=== PATIENT | female | born 1950 | race Caucasian/White ===

== ENCOUNTER 2017-12-25 08:24 | Day surgery (SDC) | payer MEDICARE, OTHER ==
[~2017-12-25] VITALS: Ht 165.1 cm; Wt 99.1 kg
--- NOTE | ~2017-12-25 | OP ---
PATIENT NAME: KOBY PEREIRA MEDICAL RECORD: [id number] :54 LOCATION:D.OPS ADMISSION DATE: SURGEON: SERENA VALLECILLO DO DATE OF OPERATION: 12/25/2017 PROCEDURE: Colonoscopy with polypectomy and biopsies. 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 SCOPE: Olympus video pediatric colonoscope. MEDICATIONS: Propofol 500 mg IV per anesthesia. WITHDRAWAL TIME: 21 minutes. ESTIMATED BLOOD LOSS: Minimal. COMPLICATIONS: None. FINDINGS: Informed consent was given. The patient was made comfortable with the above medication. After reaching an adequate level of sedation by slow IV push, the patient was placed on her left side. A digital rectal examination was performed and revealed denuded and friable mucosa surrounding the rectum and anus which is due to radiation therapy. There is no active bleeding, but the tissue was very friable. The endoscope was then advanced under direct visualization through the rectum to the cecum, confirmed by the presence of the appendiceal orifice and ileocecal valve. The endoscope was slowly withdrawn and mucosa was carefully examined. The prep quality was excellent. There were 5 polyps visualized on today's examination. Two were located in the cecum, 2 were located in the ascending colon, and one was located in the descending colon. They were all benign appearing and sessile and ranged in size from 3-5 mm in diameter. They were all removed using hot forceps in one piece and completely retrieved. In the sigmoid colon, there was one site of tissue that was congested and friable appearing. It looked like prolapsed tissue in the sigmoid colon. A single cold forceps biopsy was taken to confirm this benign finding. There was evidence of mild diverticulosis involving the descending and sigmoid colon. There was no active diverticulitis or bleeding. In the rectum, there was some further friable mucosa related to radiation therapy. Findings were not consistent with radiation proctitis, however. There was no active bleeding. A single cold forceps biopsy was taken from the rectal tissue. Retroflexion could not be performed due to the small rectal vault. The endoscope was then withdrawn from the patient. The patient tolerated the procedure well and there were no complications. IMPRESSION: 1. Multiple polyps as described above, removed using hot forceps. 2. Congested mucosa, which appeared friable in the sigmoid colon. Biopsies were taken. 3. Random biopsies taken from the rectum. 4. Mild diverticulosis of the descending and sigmoid colon. PLAN AND RECOMMENDATIONS: 1. Discharge home when recovery parameters are met. 2. Follow up biopsy specimen results. OPERATIVE REPORT [id number] KOBY PEREIRA 3. High fiber diet. 4. Continue current medications. 5. Consider use of barrier creams through the anus for protection and prevention of further bleeding. 6. Can consider some hemorrhoidal or steroidal creams, but this will likely thin this mucosa further over time and cause further bleeding. 7. Recall colonoscopy in 2-3 years based on the number and types of polyps removed on today's examination. TRANSINT:[id number] Voice Confirmation ID: [id number] DOCUMENT ID: [id number] SERENA VALLECILLO DO at 1558 CC: [id number] DICTATION DATE: 12/25/17 1117 PODODERMATOLOGIST: 12/25/17 1209 [facility] 12/25/17 [id number] [place] [address]
[2017-12-25] MEDS ORDERED: VITAMIN B-121000 MCG PO (08:52)
[2017-12-25] MEDS ORDERED: BIOTIN5 MG PO (08:53)
[2017-12-25] MEDS ORDERED: CITRACAL + D E1 EACH PO (08:53)
[2017-12-25] MEDS ORDERED: LEVOTHYROXINE100 MCG PO (08:54)
[2017-12-25] MEDS ORDERED: MULTIPLE VITAMI1 TA1 PO (08:54)
[2017-12-25] MEDS ORDERED: BYSTOLIC10 MG PO (08:54)
[2017-12-25] MEDS ORDERED: MICARDIS HCT 81 EACH PO (08:54)
[2017-12-25 09:08] VITALS: Ht 165.1 cm; Wt 99.1 kg
[2017-12-25 09:39] LABS: HEMATOCRIT 40.4 % (36.0-48.0); HEMOGLOBIN 13.5 g/dL (12-16); MCH 31.1 pg (26.0-34.0); MCHC 33.4 g/dL (31.0-37.0); MCV 93.1 fL (80.0-100.0); MEAN PLATELET VOLUME 11.4 fL (7.4-10.4); RBC 4.34 10x6/uL (4.00-5.40); RDW 13.6 % (11.5-14.5); WBC 7.3 10x3/uL (4.8-10.8)
== END 2017-12-25 12:10 | disposition home or self-care (01) ==
LOC: D.OPS 08:24
PROVIDERS: Anesthesiology
DX: D12.0 Benign neoplasm of cecum (principal); D12.4 Benign neoplasm of descending colon; K63.5 Polyp of colon; K57.30 Diverticulosis of large intestine without perforation or abscess without bleeding; Z01.812 Encounter for preprocedural laboratory examination